=== PATIENT | female | born 1930 | race Native Hawaiian/Other Pacific Islander ===

== ENCOUNTER 2017-11-20 08:39 | Emergency (ER) | payer MEDICARE, OTHER ==
[2017-11-20 08:57] VITALS: TEMP 98.2
[2017-11-20] MEDS ORDERED: Sodium Chloride 0.9% 1,000 ML IV ONE (09:09)
--- NOTE | 2017-11-20 09:09 | C.PDOC ---
History Of Present Illness 86 year old female with PMHx of HTN and vertigo is brought to the ED by her daughter for evaluation of cough that started yesterday. Patient's daughter reports she gave the patient mucinex and a nebulizer treatment yesterday. As per daughter, today patient started coughing after which she was choking on her dentures, daughter managed to pull them out with help of her . Patient has not taken her HTN medication today. Patient's daughter denies fever, hx of asthma, nasal congestion, nausea, vomit, diarrhea, dizziness, weakness, numbness. Time Seen by Provider: 11/20/17 08:42 History Per: Patient, Family History/Exam Limitations: no limitations Onset/Duration Of Symptoms: Days Current Symptoms Are (Timing): Still Present Associated Symptoms: Cough Recent travel outside of the [place]: No Additional History Per: Patient Past Medical History Reviewed: Historical Data, Nursing Documentation, Vital Signs Vital Signs: Last Vital Signs Temp 98.2 F 11/20/17 08:48 Pulse 89 11/20/17 11:16 Resp 18 11/20/17 11:16 BP 197/83 H 11/20/17 11:16 Pulse Ox 97 11/20/17 11:16 - Medical History PMH: HTN Surgical History: Appendectomy Family History: States: No Known Family Hx - Social History Hx Alcohol Use: No Hx Substance Use: No - Immunization History Hx Tetanus Toxoid Vaccination: No Hx Influenza Vaccination: No Hx Pneumococcal Vaccination: No Review Of Systems Constitutional: Negative for: Fever, Chills ENT: Negative for: Nose Congestion, Throat Pain Cardiovascular: Negative for: Chest Pain Respiratory: Positive for: Cough. Negative for: Shortness of Breath Gastrointestinal: Negative for: Nausea, Vomiting, Abdominal Pain, Diarrhea Skin: Negative for: Rash Neurological: Negative for: Weakness, Numbness, Headache, Dizziness Physical Exam - Physical Exam Appears: Non-toxic, Other (Mild distress) Skin: Normal Color, Warm, Dry Head: Atraumatic, Normacephalic Eye(s): bilateral: Normal Inspection Nose: No Discharge, No Deformity Oral Mucosa: Moist Neck: Normal ROM, Supple Chest: Symmetrical Cardiovascular: Rhythm Regular, No Murmur Respiratory: No Rales, Rhonchi (Midlle and bottom right lung), Wheezing ( expiratory), Other (tachypnic, retractions noted) Gastrointestinal/Abdominal: Soft, No Tenderness, No Guarding, No Rebound Extremity: Normal ROM, No Calf Tenderness, No Deformity, No Swelling Neurological/Psych: Oriented x3, Normal Speech, Normal Cognition ED Course And Treatment - Laboratory Results Result Diagrams: 11/20/17 09:45 11/20/17 09:45 ECG: Interpreted By Me, Viewed By Me ECG Rhythm: Sinus Rhythm ECG Interpretation: Normal Interpretation Of ECG: QTC 482 Rate From EC O2 Sat by Pulse Oximetry: 95 - Radiology CXR: Interpreted by Me, Viewed By Me CXR Interpretation: Yes: No Acute Disease, Other (no changes from prior from 2014). No: Infiltrates Progress - Re-Evaluation Re-evaluation Note: 11/20/17 10:43 NARD FEELS BETTER AFTER NEB. 11/20/17 11:40 PT TOOK OWN BP MEDS. FEELS BETTER WISHES DC HOME - Data Reviewed Data Reviewed: Lab, Diagnostic imaging, EKG, Old records Medical Decision Making Medical Decision Making: Impression: cough Plan: * VBG * CXR * EKG * Albuterol 2.5 mg INH * IV fluids * Tessalon perles 200 mg PO * Nebulizer treatment * O2 nasal cannula Disposition Counseled Patient/Family Regarding: Studies Performed, Diagnosis, Need For Followup, Rx Given - Disposition Referrals: YOUR,PMD [Other] Disposition: HOME/ ROUTINE Disposition Time: 11:41 Condition: IMPROVED Prescriptions: Azithromycin 250 mg PO DAILY #6 tab Benzonatate [Tessalon Perles] 200 mg PO TID PRN #15 sgl PRN Reason: Cough Instructions: Acute Bronchitis (ED) - Clinical Impression Clinical Impression: Bronchitis - Scribe Statement The provider has reviewed the documentation as recorded by the Scribe Dilip Villa All medical record entries made by the Scribe were at my direction and personally dictated by me. I have reviewed the chart and agree that the record accurately reflects my personal performance of the history, physical exam, medical decision making, and the department course for this patient. I have also personally directed, reviewed, and agree with the discharge instructions and disposition.
[2017-11-20] MEDS ORDERED: Albuterol 0.083% Inhal Sol (2.5 mg/3 mL) UD INH STA (09:11)
[2017-11-20] MEDS ORDERED: Sodium Chloride 0.9% 1,000 ML ONE (09:23)
[2017-11-20] MEDS ORDERED: Albuterol 0.083% Inhal Sol (2.5 mg/3 mL) UD ONE (09:23)
--- NOTE | 2017-11-20 09:42 | RAD ---
PROCEDURE: CHEST RADIOGRAPH, 1 VIEW HISTORY: Pneumonia COMPARISON: Comparison made with chest radiograph 01/06/2015 FINDINGS: LUNGS: Minor bibasilar atelectasis left greater than right PLEURA: No pneumothorax or pleural fluid seen. CARDIOVASCULAR: Heart size is upper limits of normal/ borderline aorta ectatic polyp there OSSEOUS STRUCTURES: No significant abnormalities. VISUALIZED UPPER ABDOMEN: Normal. OTHER FINDINGS: None. IMPRESSION: Minor bibasilar atelectasis left greater than right
[2017-11-20 09:44] LABS: VENOUS BLOOD GAS BASE EXCESS 3.6 mmol/L (0.0-2.0); VENOUS BLOOD GAS PCO2 52 mmHg (40-60); VENOUS BLOOD GAS PO2 43 mm/Hg (30-55); VENOUS BLOOD PH 7.37 (7.32-7.43)
[2017-11-20 09:52] LABS: BASO # 0.1 K/uL (0.0-0.2); BASO % 1.2 % (0.0-2.0); EOS % 0.9 % (0.0-4.0); HEMOGLOBIN 13.7 g/dL (11.0-16.0); LYMPH # 0.5 K/uL (1.0-4.3); LYMPH % 11.8 % (20.0-40.0); MEAN CELL VOLUME 90.7 fL (81.0-99.0); MEAN CORPUSCULAR HGB CONC 35.3 g/dL (33.0-37.0); MEAN PLATELET VOLUME 7.4 fL (7.2-11.7); MONO # 0.5 K/uL (0.0-0.8); MONO % 11.6 % (0.0-10.0); NEUT # 3.4 K/uL (1.8-7.0); NEUT % 74.5 % (50.0-75.0); NRBC % 0.1 % (0.0-2.0); RBC 4.28 Mil/uL (3.80-5.20); RED CELL DISTRIBUTION WIDTH 12.2 % (11.5-14.5); WHITE BLOOD COUNT 4.5 K/uL (4.8-10.8)
[2017-11-20 10:05] LABS: ALB/GLOB RATIO 1.4 (1.0-2.1); ALBUMIN 4.2 g/dL (3.5-5.0); ALT/SGPT 47 U/L (9-52); AST/SGOT 47 U/L (14-36); BLOOD UREA NITROGEN 17 mg/dL (7-17); CALCIUM 8.2 mg/dl (8.6-10.4); GFR AFRICAN-AMERICAN > 60; GFR NON-AFRICAN AMERICAN > 60
[2017-11-20 12:26] VITALS: BP 194/93; PULSE 84; RESP 20; O2SAT 97
--- NOTE | 2017-11-21 12:21 | CARD ---
APPROVED REPORT EKG Measurement Heart [id number] [id number] <Conclusion> Normal sinus rhythm Prolonged QT Abnormal ECG
== END 2017-11-20 12:36 | disposition home or self-care (01) ==
LOC: C.ER 08:39
DX: J40 Bronchitis, not specified as acute or chronic (principal)
CPT/HCPCS: 71045; 80053; 82803; 85025; 93005; 94640; 99284; J7040